=== PATIENT | female | born 1995 | race American Indian/Alaskan Native ===

== ENCOUNTER 2019-09-11 14:01 | Emergency (ER) | payer OTHER ==
[2019-09-11 16:19] VITALS: BP 108/60
--- NOTE | 2019-09-11 16:23 | Emergency Department Report ---
Chief Complaint: Sore Throat Stated Complaint: FLU SYMPTOMS Time Seen by Provider: 09/11/19 16:16 - HPI History of Present Illness: This is a 24 y.o. F. that presents to the ER with cough, coryza, and sore throat x 5 days. Patient is 24 weeks . Seen by [facility] and told to take medication for list provided for URI. Patient denies difficulty swallowing, fever, chills, nausea, vomiting, and myalgia. - Exam Vital Signs: Vital Signs 09/11/19 16:17 Temperature 98.4 F Pulse Rate 92 H Respiratory 18 Rate Blood Pressure 108/60 O2 Sat by Pulse 100 Oximetry MSE screening note: Focused history and physical exam performed. Due to findings the following was ordered: ED Medical Decision Making - Medical Decision Making 24 y.o. female that presents with cough, coryza, and sore throat x 5 days. Patient examined by me and stable. No distress noted. Vitals normal. No significant past medical history. She is 24 weeks and seen by OBGYN [facility] a few days ago and diagnosed with URI. She have a list provided by OBGYN of meds that are safe to take for symptomatic relief. There is mild congestion and clear lungs throughout on exam with no signs of influenza or pneumonia. Findings are susceptible of URI. This is a non-emergent complaint. Instructed to take [id number] claritin, flonase, and tylenol as instructed by OBGYN. Discharged home stable. Follow up with Primary Care Provider in 2-3 days or return to the emergency room with worsening symptoms. ED Disposition for MSE Clinical Impression: Upper respiratory infection Qualifiers: URI type: acute nasopharyngitis (common cold) Qualified Code(s): J00 - Acute nasopharyngitis [common cold] Disposition: DC-01 TO HOME OR SELFCARE Is pt being admited?: No Condition: Stable Instructions: Upper Respiratory Infection (ED), Cold Symptoms (ED) Additional Instructions: Follow up with a primary care doctor or your OBGYN at [facility]. It is safe to take [id number] claritin, flonase, and tylenol during for symptomatic relief of upper respiratory infection. Referrals: [facility] [Provider Group] - 3-5 Days Forms: Work/School Release Form(ED) Time of Disposition: 17:10
== END 2019-09-11 17:18 | disposition home or self-care (01) ==
LOC: ED 14:01
DX: O99.512 Diseases of the respiratory system complicating pregnancy, second trimester (principal); J06.9 Acute upper respiratory infection, unspecified; Z3A.24 24 weeks gestation of pregnancy